=== PATIENT | male | born 1960 | race Caucasian/White ===

== ENCOUNTER 2023-06-18 15:31 | Observation (INO) ==
[2023-06-18] MEDS ORDERED: LORazepam 2 MG/1 ML VIAL ONE (16:06)
[2023-06-18] MEDS ORDERED: fentaNYL citrate PF 100 MCG/2 ML VIAL ONE (16:06)
[2023-06-18] MEDS ORDERED: ONDANSETRON INJ 2 MG/ML 2 ML VIAL ONE (16:06)
[2023-06-18] MEDS ORDERED: PROPOFOL IV EMULSION 10 MG/ML 20 ML VIAL IV ONE (16:16)
--- NOTE | 2023-06-18 16:28 | XRay Report ---
XR ankle LT 2V CLINICAL HISTORY: trauma TECHNIQUE: 2 views of the left ankle were obtained. Comparison: None available at the time of this dictation. FINDINGS: There is a spiral fracture of the distal tibial diaphysis. Degenerative changes are seen. The ankle m ortise is intact. Soft tissue swelling is seen about the ankle. IMPRESSION: Spiral fracture of the distal tibial diaphysis. ACT 112: Negative or not required by law. Electronically signed by: Phil Huerta M.D. 06/18/2023 4:26 PM
--- NOTE | 2023-06-18 16:43 | Emergency Department Note ---
ED Visit Note The patient was seen primarily by Dr. Ahuja. Please see his documentation for details of the patient's presentation. My participation related to assistance with procedural sedation for fracture-dislocation reduction per documentation below. Procedural Sedation Indication Ankle fracture-dislocation reduction. Total time: 16 minutes. Written consent was obtained after the risks and benefits were explained to the patient, including, but not limited to aspiration, allergic reaction, breathing difficulties, cardiac complications, vomiting, pain, event recall, bleeding, and/or infection. Pre-sedation examination and paperwork completed. The patient was nasal canula prior to the procedure. Continous end tidal CO2 monitoring, pulse oximetry, and cardiac monitoring were utilized. Suction, airway equipment, medications, respiratory equipment, and appropriate personnel were prepared prior to the initiation of the procedure. A time out was taken. Sedation was achieved utilizing 60 mg (30mg x 2, see record for details) of Propofol. After I observed the patient had reached the appropriate level of sedation the main procedure was performed without complication. The patient had very transient episode of apnea where O2 saturation declined to low 80s for several seconds and rapidly recovered following 100% oxygen with BVM x 3 breaths. Sedation was discontinued and the monitoring continued. The patient recovered quickly from the effects of the medication without complication or adverse event. . Pre Sedation Assessment Vital Signs Temp Pulse Resp BP Pulse Ox O2 Del Method O2 Flow Rate 06/18/23 18:30 79 17 146/89 H 96 Room Air 06/18/23 18:25 84 16 140/81 97 Room Air 06/18/23 18:20 86 16 140/86 97 Room Air 06/18/23 18:15 80 16 147/98 H 99 Room Air 06/18/23 18:05 79 16 139/87 99 Room Air 06/18/23 18:00 75 14 143/92 H 99 Room Air 06/18/23 17:50 79 17 136/83 98 Room Air 06/18/23 17:46 72 17 142/75 H 95 Room Air 06/18/23 17:40 87 16 110/74 95 Room Air 06/18/23 17:35 82 16 135/87 98 Room Air 06/18/23 17:30 84 17 125/82 96 Room Air 06/18/23 17:25 79 13 133/79 93 Room Air 06/18/23 17:20 80 13 146/86 H 95 Room Air 06/18/23 17:15 75 13 131/78 97 Room Air 06/18/23 17:10 76 13 136/84 98 Room Air 06/18/23 17:05 76 13 136/81 97 Room Air 06/18/23 17:00 76 13 139/83 97 Room Air 06/18/23 16:55 79 14 141/85 H 97 Room Air 06/18/23 16:50 79 15 140/83 99 Room Air 06/18/23 16:45 81 12 149/84 H 95 Room Air 06/18/23 16:40 80 14 141/79 H 94 Room Air 06/18/23 16:35 78 14 148/82 H 97 Nasal Cannula 2 06/18/23 16:30 81 13 147/86 H 95 Nasal Cannula 2 06/18/23 16:25 85 14 144/81 H 93 Nasal Cannula 2 06/18/23 16:20 88 17 132/78 98 Room Air 06/18/23 16:13 74 18 143/66 H 97 Room Air 06/18/23 16:32 82 06/18/23 15:47 36.8 C 73 20 132/92 100 Room Air Cardiovascular RRR, no murmur, no edema Respiratory normal respiratory effort, lungs clear to auscultation Pre-Sedation Airway Assessment Smoking Status: Never smoker Hx Sleep Apnea: No Hx Difficult Intubation: No Short, Thick Neck: No Thyromental Distance: < 3.5 Finger Breadths Oral Cavity: + WNL Mallampati Class: I ASA: ASA1 NPO Status Date of Last Intake of Fluids: 06/18/23 Time of Last Intake of Fluids: 12:00 Date of Last Intake of Solid Food: 06/18/23 Time of Last Intake of Solid Foods: 12:00 Last Intake of Solids Comment: baked potato Procedure Planning Contraindications for Sedation: none (Given indication for emergent fracture- dislocation reduction, sedation is appropriate in order to proceed with procedure despite last oral intake.) Current Medications Reviewed: Yes Notes The planned sedation has been discussed with the patient. Informed Consent was obtained. I have identified the patient, determined the appropriateness of sedation and have assessed the patient immediately prior to the procedure. All medicine(s) and interventions are by my order. Sedation Data Time Out Team Members Agree on the Following: Correct Patient, Correct Procedure, Correct Site-Side and Allergies Verified Team Agrees: Yes Time Out Performed Time: 16:23 Sedation Times Sedation Start Date: 06/18/23 Sedation Start Time: 16:24 Sedation End Date: 06/18/23 Sedation End Time: 16:40 Total Sedation Time: 16 Procedure Times Procedure Start Time:: 16:24 Procedure End Time: 16:40 Specimens Specimens Obtained: No Post Sedation Assessment Vital Signs Temp Pulse Resp BP Pulse Ox O2 Del Method O2 Flow Rate 06/18/23 18:30 79 17 146/89 H 96 Room Air 06/18/23 18:25 84 16 140/81 97 Room Air 06/18/23 18:20 86 16 140/86 97 Room Air 06/18/23 18:15 80 16 147/98 H 99 Room Air 06/18/23 18:05 79 16 139/87 99 Room Air 06/18/23 18:00 75 14 143/92 H 99 Room Air 06/18/23 17:50 79 17 136/83 98 Room Air 06/18/23 17:46 72 17 142/75 H 95 Room Air 06/18/23 17:40 87 16 110/74 95 Room Air 06/18/23 17:35 82 16 135/87 98 Room Air 06/18/23 17:30 84 17 125/82 96 Room Air 06/18/23 17:25 79 13 133/79 93 Room Air 06/18/23 17:20 80 13 146/86 H 95 Room Air 06/18/23 17:15 75 13 131/78 97 Room Air 06/18/23 17:10 76 13 136/84 98 Room Air 06/18/23 17:05 76 13 136/81 97 Room Air 06/18/23 17:00 76 13 139/83 97 Room Air 06/18/23 16:55 79 14 141/85 H 97 Room Air 06/18/23 16:50 79 15 140/83 99 Room Air 06/18/23 16:45 81 12 149/84 H 95 Room Air 06/18/23 16:40 80 14 141/79 H 94 Room Air 06/18/23 16:35 78 14 148/82 H 97 Nasal Cannula 2 06/18/23 16:30 81 13 147/86 H 95 Nasal Cannula 2 06/18/23 16:25 85 14 144/81 H 93 Nasal Cannula 2 06/18/23 16:20 88 17 132/78 98 Room Air 06/18/23 16:13 74 18 143/66 H 97 Room Air 06/18/23 16:32 82 06/18/23 15:47 36.8 C 73 20 132/92 100 Room Air Recovery Score Activity: Moves 4 extremities Respiration: Deep Breath/Cough Circulation: +/-20% PreAnes Value Consciousness: Fully Awake Oxygen Saturation: > 92% On Room Air Post Anesthesia Score: 10 Discharge Sedation Level of Care: Phase I Post Sedation Plan On clinical assessment, the patient appears to have tolerated the sedation without complications. Patient is recovering as anticipated. Patient will continue to be monitored by nursing and may be discharged when sedation discharge criteria are met per below protocol. Upon Completions of procedure up to 15 minutes continue every 5 minute vital signs and the P.A.R. score; then discharge to a Phase I or Fast Track to Phase II per the following guidelines: * Discharge Patient to appropriate Phase II area if PAR is 8 or greater or return to pre- procedure baseline. The post - procedure orders will be as directed. * If PAR score is less than 8 or not return to pre-procedure baseline then patient will follow Phase I monitoring till PAR is reached for Phase II. The Phase I may be done in procedure room or may call to secure a Phase I area. * If naloxone or flumazenil are used for reversal, hold in Phase I for continued monitoring from when last reversal dose was given for a minimum of 60 minutes or longer pending the nurse and/or physician discretion of patient condition before discharge to Phase II. Please call the Sedation Physician to re-evaluate and complete post-note for discharge to Phase II area. Do NOT discharge from procedure sedation or Phase 1 until post- sedation evaluation note is complete by procedure /sedation MD Sedation Discharge Instructions to be given to the patient at discharge to home.
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
--- NOTE | 2023-06-18 17:07 | XRay Report ---
XR tibia fibula LT 2V CLINICAL HISTORY: post reducrtion TECHNIQUE: 2 radiographic views of the left leg were obtained. Comparison: Comparison is made to left ankle radiographs 06/18/2023 FINDINGS: The leg has been placed in a splint limiting fine bony detail. There is a spiral fracture of the prox imal fibula in addition to the previously noted tibial fracture. The tibial fracture has been somewha t reduced and now demonstrates 1 cortex width lateral displacement. Soft tissue swelling is seen. IMPRESSION: Spiral fractures of the proximal fibular diaphysis and distal tibial diaphysis. The fragments are in grossly anatomic alignment.. ACT 112: Negative or not required by law. Electronically signed by: Phil Huerta M.D. 06/18/2023 5:05 PM
[2023-06-18] MEDS ORDERED: ONDANSETRON INJ 2 MG/ML 2 ML VIAL IV PRN (18:00)
[2023-06-18] MEDS ORDERED: MoRPHine SULFATE 2 MG/ML CARP IV PRN (18:00)
--- NOTE | 2023-06-18 18:04 | XRay Report ---
XR chest 1V portable CLINICAL HISTORY: preop TECHNIQUE: Single frontal radiograph of the chest was obtained. Comparison: None available at the time of this dictation. FINDINGS: No lines and tubes are seen. The cardiomediastinal silhouette is normal. The lungs are clear. No evid ence of pleural effusion or pneumothorax. IMPRESSION: No acute chest disease. ACT 112: Negative or not required by law. Electronically signed by: Phil Huerta M.D. 06/18/2023 6:02 PM
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
[2023-06-18 18:31] LABS: Hematocrit (blood only) 43.6 % (42.0-52.0); Hemoglobin 14.9 g/dl (14.0-18.0); Mean Corpuscular Hemoglobin 30.8 pg (25.0-34.0); Mean Corpuscular Hgb Conc 34.2 g/dL (32.0-36.0); Mean Corpuscular Volume 90.1 fL (80.0-100.0); Mean Platelet Volume 10.9 fL (9.4-12.4); Platelet Count 268 K/uL (130-400); RDW Standard Deviation 43.4 fL (36.4-46.3); Red Blood Count 4.84 M/uL (4.70-6.10); White Blood Count 14.09 K/ul (4.8-10.8)
[2023-06-18 18:50] LABS: BUN Creatinine Ratio 15.8 (10-20); Calcium 8.7 mg/dl (8.6-10.3); Creatinine Clr Calc Pharmacy 84.8 ml/min; Est GFR (African American) 98.3 ml/min; Est GFR (Non-African American) 84.9 ml/min; Potassium 3.8 mmol/L (3.5-5.1)
[2023-06-18 18:54] LABS: Basophils # (auto) 0.04 K/uL (0.00-0.20); Basophils % (auto) 0.3 %; Eosinophils # (auto) 0.01 K/uL (0.00-0.50); Eosinophils % (auto) 0.1 %; Immature Granulocytes # (auto) 0.07 K/uL (0.01-0.20); Immature Granulocytes % (auto) 0.5 %; Lymphocytes # (auto) 0.76 K/uL (1.20-3.40); Lymphocytes % (auto) 5.4 %; Monocytes # (auto) 0.37 K/uL (0.11-0.59); Monocytes % (auto) 2.6 %; Neutrophils # (auto) 12.84 K/uL (1.40-6.50); Neutrophils % (auto) 91.1 %; RBC Morphology Unremarkable
[2023-06-18 19:04] LABS: Partial Thromboplastin Ratio 0.9; Prothrombin Time 10.7 Seconds (9.0-12.0)
[2023-06-18] MEDS: SODIUM CHLORIDE 0.9% 1,000 ML IV SCH (19:08)
[2023-06-19] MEDS ORDERED: ceFAZolin 2000MG 2,000 MG/15 ML SYR IV SCH (06:00)
[2023-06-19] MEDS ORDERED: ePHEDrine sulfate 50 MG/ML AMP IV PRN (07:07)
[2023-06-19] MEDS ORDERED: ATROPINE SULFATE 0.1 MG/ML 10ML SYR IV PRN (07:07)
[2023-06-19] MEDS ORDERED: ONDANSETRON INJ 2 MG/ML 2 ML VIAL IV PRN (07:07)
[2023-06-19] MEDS ORDERED: fentaNYL citrate PF 100 MCG/2 ML VIAL IV PRN (07:07)
--- NOTE | 2023-06-19 07:07 | Anesthesiology Consultation ---
Date of Service June 19, 2023 Assessment & Plan Chart Review Chart Review: data entry email processor initiated History Surgery Operation Date: 06/19/23 07:30 Proposed Procedures p Left Tibial Intramedullary Nail Insertion(Left) - Antwon Barragan DO Height/Weight Height: 5 ft 11 in Weight: 88.7 kg Allergies Allergy/AdvReac Type Severity Reaction Status Date / Time tetanus toxoid, adsorbed Allergy Mild Unknown Verified 06/18/23 17:07 Medications Home Medications Medication Instructions Recorded Confirmed Last Taken simvastatin 10 mg tablet 10 mg PO HS 06/18/23 06/18/23 Unknown Active Medications Generic Name Dose Route Start Last Admin Trade Name Freq PRN Reason Stop Dose Admin Sodium Chloride 1,000 mls @ 80 mls/hr 06/18/23 18:00 06/18/23 19:08 Nss 1000ml IV 07/18/23 17:59 80 mls/hr .[id number] JUSTIN Administration Morphine Sulfate 2 mg 06/18/23 18:00 06/19/23 01:50 Morphine Sulfate 2 Mg/Ml Carp IV 07/02/23 17:59 2 mg Q3H PRN Administration Pain NPO Date Last Intake of Fluids: 06/18/23 Time Last Intake of Fluids: 12:00 Date Last Intake of Solids: 06/18/23 Time Last Intake of Solids: 12:00 Last Intake of Solids Comment: baked potato Past Medical History Medical History Hypercholesterolemia Past Family History Family History Father Hypertension Skin cancer Other Prostate cancer Past Surgical History Surgical History Hx of hernia repair Hx of knee surgery Social History Smoking Status: Never smoker Hx Alcohol Use: No Hx Substance Use: No substance use type: does not use Physical Exam Vital Signs Last Vital Signs Temp 97.7 F 06/18/23 20:50 Pulse 86 06/18/23 20:50 Resp 19 06/18/23 20:50 BP 126/73 06/18/23 20:50 Pulse Ox 99 06/18/23 20:50 O2 Del Method Room Air 06/18/23 22:00 O2 Flow Rate 2 06/18/23 16:35 Testing Laboratory Results 06/18/23 18:12 06/18/23 18:12 PT 10.7 Seconds (9.0-12.0) 06/18/23 18:12 INR 1.0 (0.9-1.1) 06/18/23 18:12 APTT 26.0 Seconds (21.0-31.0) 06/18/23 18:12 Electrocardiogram Date: 06/18/23 Normal sinus rhythm, rate 80 bpm Rightward axis Borderline ECG When compared with ECG of 12-JUN-2009 08:14, No significant change was found Chest X-Ray Date: 06/18/23 Findings: + NAD
[2023-06-19] MEDS ORDERED: LIDOCAINE 2% 2 ML VIAL/AMP(20MG/ML) INFIL ONE (07:11)
[2023-06-19] MEDS ORDERED: HYDROmorphone INJ 2 MG/ML SYR/VIAL ONE (07:11)
[2023-06-19] MEDS ORDERED: PROPOFOL IV EMULSION 10 MG/ML 20 ML VIAL IV ONE (07:11)
[2023-06-19] MEDS ORDERED: ONDANSETRON INJ 2 MG/ML 2 ML VIAL ONE (07:11)
[2023-06-19] MEDS ORDERED: MIDAZOLAM HCL 1 MG/ML 2ML VIAL ONE (07:12)
--- NOTE | 2023-06-19 07:16 | History & Physical Bridge Note ---
Date of Service June 19, 2023 History & Physical Bridge Note I have examined the patient, reviewed the History & Physical and in the interval since the performance of the History & Physical I have noted the following changes of clinical significance: no changes noted
[2023-06-19] MEDS ORDERED: BUPIVACAINE/EPINEPHRINE 0.5% MPF 1:200,000 30 ML VIAL ONE (07:47)
--- NOTE | 2023-06-19 09:03 | Operative Report ---
PG Post Operative Report Pre & Post Diagnosis Operation Date: 06/19/23 07:30 Pre-Op Diagnosis: LEFT DISTAL TIBIA FRACTURE Post-Op Diagnosis: LEFT DISTAL TIBIA FRACTURE I identified the patient and participated in the time-out.: Yes Procedure Operation Date: 06/19/23 07:30 Actual Procedures p Left Tibial Intramedullary Nail Insertion(Left) - Antwon Barragan DO Surgeon Antwon Barragan DO Web Publisher Antwon Corral PA-C Estimated Blood Loss 20 Findings Consistent with Post-Op Diagnosis Specimens None Description of Procedure On June 19, 2023 Vincent was brought down from his hospital bed to the preoperative holding area. The operative extremity was identified and signed. He was given a preoperative antibiotic. He is taken back to the operative room and laid on table supine position. Was put under general anesthesia. The left leg was prepped and draped in sterile fashion. A timeout was done. The patient and the operative extremity was properly identified. A midline incision was made over the patella tendon. Dissection was taken down through the fascia. A medial patella tendon arthrotomy was used. A small portion of soft head was removed. The knee was then flexed. A guidewire was placed in the central anterior aspect of the tibial plateau. Appropriate placement of the guidepin was checked on orthogonal fluoroscopic images. Once I was happy with the placement of the guidepin, an opening reamer was used to open the tibial canal. An attempt was made to reduce the fracture through close reduction. Unfortunately I was unable to get an adequate reduction. A small incision was made over the anterior medial aspect of the tibia adjacent to the fracture. The fracture was easily identified and a clamp was used to reduce the fracture. The guidepin was then passed down to the distal tibia. Sequential reaming up to a size 10-1/2 reamer was done. A Synthes 9 mm TFN nail was then impacted into place. Appropriate placement of the nail and reduction of the fracture was checked on fluoroscopic images. 2 static screws were placed proximally. 2 static screws were then placed distally. Final fluoroscopic images showed anatomic alignment of the fracture and good placement of the screws and the hardware. The wounds were then irrigated. The arthrotomy was closed with #0 Vicryl. Skin's were closed with 2-0 Vicryl and feli. He was then placed in a trauma splint. He was then extubated and transferred to a hospital bed. He was taken to the postanesthesia care unit in stable condition. He tolerated the procedure well. Antwon Corral PA-C, was present for the entire procedure. He was critical for patient positioning, prepping, draping, retraction exposure, wound closure and application of sterile dressing. I attest to the content of the Intraoperative Record and any orders documented therein. Any exceptions are noted below.
--- NOTE | 2023-06-19 09:09 | Fluoroscopy Report ---
INTRAOPERATIVE RADIOGRAPHS CLINICAL HISTORY: Open reduction and internal fixation of the left tibia. Fluoro time: 64 seconds Ka,r: 2.71 mGy FINDINGS: 4 spot fluoroscopic views of the left tibia and fibula are compared to radiographs dated . An intramedullary nail has been placed in the left tibia transfixing a distal diaphyseal fra cture. Near-anatomic alignment is restored. 2 cortical lag screws transfix the proximal and distal en ds of the nail. There is a mildly displaced spiral fracture of the proximal fibula. Overlying soft ti ssue edema is noted. IMPRESSION: Intraoperative images from open reduction internal fixation of a left tibial fracture as above. Electronically signed by: Martinez Juan M.D. 06/19/2023 9:07 AM
--- NOTE | 2023-06-19 09:37 | Anesthesiology Progress Note ---
Date of Service June 19, 2023 Anesthesia Post Procedure Vital Signs Vital Signs: Temp Pulse Pulse Pulse Pulse Resp BP 06/19/23 09:35 97.5 F L 94 H 14 06/19/23 09:25 92 H 16 06/19/23 09:15 96.8 F L 105 H 20 06/18/23 22:00 06/18/23 20:50 97.7 F 86 19 06/18/23 20:50 97.7 F 86 19 06/18/23 18:30 79 17 146/89 H 06/18/23 18:25 84 16 140/81 06/18/23 18:20 86 16 140/86 06/18/23 18:15 80 16 147/98 H 06/18/23 18:05 79 16 139/87 06/18/23 18:00 75 14 143/92 H 06/18/23 17:50 79 17 136/83 06/18/23 17:46 72 17 142/75 H 06/18/23 17:40 87 16 110/74 06/18/23 17:35 82 16 135/87 06/18/23 17:30 84 17 125/82 06/18/23 17:25 79 13 133/79 06/18/23 17:20 80 13 146/86 H 06/18/23 17:15 75 13 131/78 06/18/23 17:10 76 13 136/84 06/18/23 17:05 76 13 136/81 06/18/23 17:00 76 13 139/83 06/18/23 16:55 79 14 141/85 H 06/18/23 16:50 79 15 140/83 06/18/23 16:45 81 12 149/84 H 06/18/23 16:40 80 14 141/79 H 06/18/23 16:35 78 14 148/82 H 06/18/23 16:30 81 13 147/86 H 06/18/23 16:25 85 14 144/81 H 06/18/23 16:20 88 17 132/78 06/18/23 16:13 74 18 143/66 H 06/18/23 16:32 82 06/18/23 15:47 98.2 F 73 20 132/92 BP Pulse Ox O2 Del Method O2 Flow Rate 06/19/23 09:35 137/87 98 Nasal Cannula 3 06/19/23 09:25 134/85 97 Nasal Cannula 3 06/19/23 09:15 144/95 H 96 Nasal Cannula 3 06/18/23 22:00 Room Air 06/18/23 20:50 126/73 99 Room Air 06/18/23 20:50 126/73 99 Room Air 06/18/23 18:30 96 Room Air 06/18/23 18:25 97 Room Air 06/18/23 18:20 97 Room Air 06/18/23 18:15 99 Room Air 06/18/23 18:05 99 Room Air 06/18/23 18:00 99 Room Air 06/18/23 17:50 98 Room Air 06/18/23 17:46 95 Room Air 06/18/23 17:40 95 Room Air 06/18/23 17:35 98 Room Air 06/18/23 17:30 96 Room Air 06/18/23 17:25 93 Room Air 06/18/23 17:20 95 Room Air 06/18/23 17:15 97 Room Air 06/18/23 17:10 98 Room Air 06/18/23 17:05 97 Room Air 06/18/23 17:00 97 Room Air 06/18/23 16:55 97 Room Air 06/18/23 16:50 99 Room Air 06/18/23 16:45 95 Room Air 06/18/23 16:40 94 Room Air 06/18/23 16:35 97 Nasal Cannula 2 06/18/23 16:30 95 Nasal Cannula 2 06/18/23 16:25 93 Nasal Cannula 2 06/18/23 16:20 98 Room Air 06/18/23 16:13 97 Room Air 06/18/23 16:32 06/18/23 15:47 100 Room Air Pain Intensity Left Leg: Pain Intensity: 6 Transfer of Care Handoff Completed per policy Notes Mental Status: alert / awake / arousable and participated in evaluation Patient Amnestic to Procedure: Yes Nausea / Vomiting: adequately controlled Pain: adequately controlled Airway Patency, RR, SpO2: stable & adequate BP & HR: stable & adequate Hydration State: stable & adequate Anesthetic Complications: no major complications apparent and Pt Satisfied with anesthetic care
[2023-06-19] MEDS ORDERED: ACETAMINOPHEN 500 MG TAB PO PRN (09:47)
[2023-06-19] MEDS ORDERED: oxyCODONE HCL IR 5 MG TAB (IMMEDIATE RELEASE) PO PRN (09:47)
[2023-06-19] MEDS ORDERED: ceFAZolin 2000MG 2,000 MG/15 ML SYR IV ONE (10:15)
[2023-06-19] MEDS: SODIUM CHLORIDE 0.9% 1,000 ML IV SCH ×2 (10:22→21:11)
[2023-06-19] MEDS ORDERED: SIMVASTATIN 10 MG TAB PO SCH (21:00)
[2023-06-19] MEDS: ASPIRIN 81 MG ECTAB PO SCH (21:10)
[2023-06-20] MEDS: SODIUM CHLORIDE 0.9% 1,000 ML IV SCH (07:04)
[2023-06-20] MEDS: ASPIRIN 81 MG ECTAB PO SCH (07:24)
--- NOTE | 2023-06-20 09:32 | Orthopedic Progress Note ---
Date of Service June 20, 2023 Assessment & Plan (1) Closed fracture of left distal tibia: Overall he is doing as well as expected with the left leg. He is on aspirin 81 mg twice a day for DVT prophylaxis. He will be seen by physical therapy today and will be shown touch toe weightbearing. He can follow-up with orthopedics next week where he will likely be placed in a cam walker boot. Full orthopedic discharge instructions were placed in the discharge summary. Pablo Kaur was seen and examined at bedside this morning. Overall is doing fairly well. He says he has a lot of pain in the left leg but he can manage it. He has no new complaints.. Review of Systems All systems reviewed & are unremarkable except as noted in HPI & below. Physical Exam On physical examination of the left leg, the dressing has been reinforced but is now clean and dry. He is sitting in a chair at bedside. He is active motion of his toes.. Results & Data Results & Data Laboratory Results . Diagnostic Findings . PG Care Time/CCT Total # of Minutes Spent Total Time Spent with Patient: Total time spent is greater than 50% in coordination of care (as documented) at patient's floor/unit and/or counseling patient: Coding Level of Care Code 88848 Post Operative Follow-Up Diagnoses Closed fracture of left distal tibia S82.302A
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
--- NOTE | 2023-06-20 21:16 | Electrocardiogram Report ---
Test Reason : Blood Pressure : / mmHG Vent. Rate : 080 BPM Atrial Rate : 080 BPM P-R Int : 150 ms QRS Dur : 102 ms QT Int : 398 ms P-R-T Axes : 066 098 071 degrees QTc Int : 459 ms Normal sinus rhythm Rightward axis Borderline ECG When compared with ECG of 12-JUN-2009 08:14, No significant change was found Confirmed by Venkata Velez ([id number]) on 06/20/2023 9:15:49 PM Referred By: REFERRED SELF Confirmed By:Venkata Velez
== END 2023-06-20 12:11 | disposition home health service (06) ==
LOC: ED 15:31 → INTOOBSV 18:00 → 3W 18:00